=== PATIENT | male | born 2000 | race Caucasian/White ===

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

== ENCOUNTER 2021-07-06 12:21 | Emergency (ER) | payer OTHER, BC ==
[2021-07-06 12:40] VITALS: BP 126/85; PULSE 97
[2021-07-06] MEDS ORDERED: Sodium Chloride 0.9% 10 ML Syringe FLUSH PRN (13:12)
[2021-07-06] MEDS ORDERED: Ondansetron 4 MG/2 ML SDV IVPUSH ONE (13:13)
[2021-07-06] MEDS ORDERED: Sodium Chloride 0.9% 1,000 ML IV SCH (13:15)
[2021-07-06 14:37] LABS: CORONAVIRUS COVID-19 NAA NEGATIVE (NEGATIVE)
== END 2021-07-06 15:54 | disposition home or self-care (01) ==
LOC: JD.ED 12:21
DX: R74.01 Elevation of levels of liver transaminase levels (principal); D82.3 Immunodeficiency following hereditary defective response to Epstein-Barr virus; B27.90 Infectious mononucleosis, unspecified without complication; K73.9 Chronic hepatitis, unspecified; Z20.822 Contact with and (suspected) exposure to COVID-19; Z88.1 Allergy status to other antibiotic agents; Z90.49 Acquired absence of other specified parts of digestive tract
CPT/HCPCS: 0241U; 36415; 71045; 80053; 85025; 86140; 86308; 96374; 99285; J2405; J3490; J7030

== ENCOUNTER 2021-07-10 16:57 | Emergency (ER) | payer OTHER, BC ==
[2021-07-10 18:45] VITALS: BP 118/75; PULSE 87
[2021-07-10] MEDS ORDERED: Lactated Ringers 1,000 ML IV ONE (18:48)
== END 2021-07-10 21:20 | disposition home or self-care (01) ==
LOC: JD.ED 16:57
DX: R55 Syncope and collapse (principal); B27.90 Infectious mononucleosis, unspecified without complication; Z88.8 Allergy status to other drugs, medicaments and biological substances
CPT/HCPCS: 36415; 71045; 80053; 83735; 85025; 93005; 99284; J7120